=== PATIENT | male | born 1980 | race Caucasian/White ===

== ENCOUNTER 2017-05-07 20:38 | Emergency (ER) | payer MEDICAID ==
[2017-05-07] MEDS ORDERED: Sodium Chloride 0.9% 100 ML IV ONE (21:01)
[2017-05-07] MEDS ORDERED: Iopamidol 612 MG/ML 100 ML Bottle IV ONE (21:01)
[2017-05-07] MEDS ORDERED: Sodium Chloride 0.9% 10 ML Syringe FLUSH PRN (21:02)
[2017-05-07] MEDS ORDERED: Sodium Chloride 0.9% 1,000 ML IV ONE (21:03)
--- NOTE | 2017-05-07 21:04 | EDM.PDOC ---
ED HPI GENERAL MEDICAL PROBLEM - General Chief Complaint: Abdominal Pain Stated Complaint: Bloated and distended abdomen, jaundiced Time Seen by Provider: 05/07/17 20:40 Source of Information: Reports: Patient, Family, RN, RN Notes Reviewed History Limitations: Reports: No Limitations - History of Present Illness INITIAL COMMENTS - FREE TEXT/NARRATIVE: Patient presents the emergency room at [facility] complaining of abdominal bloating with abdominal discomfort. The patient states that he was seen at a walk-in clinic about 2-1/2 weeks ago for anxiety and insomnia. The patient states that he was prescribed an antidepressant, however he did not start the medication given a previous history. The patient states over the past couple of weeks his abdomen has progressively gotten worse with bloating. The patient states he's had a decrease in appetite. The patient states he's had loose stools. No diarrhea. The patient states that his abdominal bloating has progressively gotten worse. The patient states that he has also felt nauseated. The patient states that he has had dry heaves. The patient denies any trouble with urination. The patient states he feels short of breath at times. The patient is a current every day smoker. The patient denies any lower extremity edema. The patient states that she drinks alcohol on a daily basis. The patient states that he has 6-7 mixed drinks daily. The patient denies any medical history. The patient is currently not taking any prescription medications. Onset: Gradual Duration: Getting Worse Location: Reports: Abdomen Quality: Reports: Dull, Pressure Severity: Mild Improves with: Reports: None Worsens with: Reports: None Context: Denies: Activity, Exercise, Lifting, Sick Contact, Trauma Associated Symptoms: Reports: Loss of Appetite, Nausea/Vomiting, Shortness of Breath Treatments SOCIAL WORK COORDINATOR: Reports: Other (see below) (None) Abdomen Pain Score (Numeric/FACES): 5 - Related Data Allergies Allergy/AdvReac Type Severity Reaction Status Date / Time No Known Allergies Allergy Verified 05/07/17 20:55 Home Meds: Home Meds . [No Known Home Meds] 05/07/17 [History] ED ROS GENERAL - Review of Systems Review Of Systems: See Below Constitutional: Reports: Decreased Appetite. Denies: Fever, Chills Respiratory: Reports: Shortness of Breath. Denies: Cough, Sputum Cardiovascular: Denies: Chest Pain, Palpitations GI/Abdominal: Reports: Abdominal Pain, Distension, Nausea, Vomiting. Denies: Black Stool, Bloody Stool, Diarrhea Skin: Reports: No Symptoms Neurological: Reports: No Symptoms ED EXAM, GI/ABD - Physical Exam Exam: See Below Exam Limited By: No Limitations General Appearance: Alert, No Apparent Distress Respiratory/Chest: No Respiratory Distress, Lungs Clear, Normal Breath Sounds Cardiovascular: Normal Peripheral Pulses, Regular Rate, Rhythm, No Edema GI/Abdominal Exam: Distended, Rigid, Abnormal Bowel Sounds (Hyperactive), Hepatomegaly, Other (severe facial jaundice). No: Guarding Neurological: Alert, Oriented Skin Exam: Jaundice (facial) Course - Vital Signs Last Recorded V/S: Last Vital Signs Temp 36.3 C 05/07/17 20:52 Pulse 120 H 05/07/17 20:52 Resp 16 05/07/17 20:52 BP 145/87 H 05/07/17 20:52 Pulse Ox 94 L 05/07/17 20:52 - Orders/Labs/Meds Orders: Active Orders 24 hr Category Date Time Status Abdomen Pelvis w Cont [CT] Stat Exams 05/07/17 21:01 Taken FERRITIN [CHEM] Stat Lab 05/07/17 21:25 Received GGT [REF] Stat Lab 05/07/17 21:25 Received HEPATITIS PANEL, ACUTE [REF] Stat Lab 05/07/17 21:25 Received IRON/TIBC [CHEM] Stat Lab 05/07/17 21:25 Received RETICULOCYTE COUNT [REF] Stat Lab 05/07/17 21:25 Received Sodium Chloride 0.9% [Saline Flush] Med 05/07/17 21:02 Active 10 ml FLUSH ASDIRECTED PRN Peripheral IV Insertion Adult [OM.PC] Routine Oth 05/07/17 21:02 Ordered Medication Orders Sodium Chloride (Saline Flush) 10 ml FLUSH ASDIRECTED PRN PRN Reason: Keep Vein Open Labs: Laboratory Tests 05/07/17 05/07/17 05/07/17 Range/Units 21:25 21:25 21:25 WBC 9.6 (4.0-10.0) x10^3/uL RBC 3.62 L (4.5-6.0) x10^6/uL Hgb 13.2 L (14.0-18.0) g/dL Hct 34.2 L (40.0-52.0) % MCV 94.5 H (78.0-93.0) fL MCH 36.5 H (26.0-32.0) pg MCHC 38.6 H (32.0-36.0) g/dL RDW Coeff of [place] 15.9 H (10.0-15.0) % Plt Count 100 L (130-400) x10^3/uL Neut % (Auto) 86.8 H (50.0-80.0) % Lymph % (Auto) 4.1 L (25.0-50.0) % [place] % (Auto) 8.5 (2.0-11.0) % Eos % (Auto) 0.5 (0.0-4.0) % Baso % (Auto) 0.1 L (0.2-1.2) % ESR (0-16) mm/hr PT 23.6 H (9.8-11.8) SEC INR 2.2 (2.0-3.5) APTT 35.0 H (22.0-34.0) SEC Sodium 121 L* (136-145) mmol/L Potassium 3.1 L (3.5-5.1) mmol/L Chloride 83 L (98-107) mmol/L Carbon Dioxide 29 (21-32) mmol/L BUN 8 (7-18) mg/dL Creatinine 0.9 (0.70-1.30) mg/dL Est Cr Clr Drug Dosing TNP Estimated GFR (MDRD) > 60 Glucose 129 H (74-106) mg/dL Calcium 7.6 L (8.5-10.1) mg/dL Corrected Calcium 8.80 (8.5-10.1) mg/dL Total Bilirubin 33.2 H* (0.2-1.0) mg/dL Direct Bilirubin 26.50 H (0.00-0.20) mg/dL AST 268 H (15-37) U/L ALT 89 H (16-63) U/L Alkaline Phosphatase 363 H (46-116) U/L Lactate Dehydrogenase 554 H (85-227) U/L Total Protein 6.5 (6.4-8.2) g/dL Albumin 2.5 L (3.4-5.0) g/dL Globulin 4.0 Albumin/Globulin Ratio 0.63 Amylase 35 (25-115) U/L Lipase 365 (73-393) U/L Urine Color (YELLOW) Urine Appearance (CLEAR) Urine pH (5.0-8.0) Ur Specific [place] Urine Protein (NEGATIVE) mg/dL Urine Glucose (UA) (NEGATIVE) mg/dL Urine Ketones (NEGATIVE) mg/dL Urine Occult Blood (NEGATIVE) Urine Nitrite (NEGATIVE) Urine Bilirubin (NEGATIVE) Urine Urobilinogen (0.2) EU/dL Ur Leukocyte Esterase (NEGATIVE) Urine RBC (NOT SEEN) /HPF Urine WBC (NOT SEEN) /HPF Ur Squamous Epith Cells (NEGATIVE) /HPF Ur Transition Epith Cell (NEGATIVE) /HPF Ur Renal Epithelial Cell (NEGATIVE) /HPF Amorphous Sediment Urine Bacteria (NEGATIVE) /HPF Epithelial Casts Hyaline Casts (NEGATIVE) /HPF Granular Casts (NEGATIVE) /HPF WBC Casts (NEGATIVE) /HPF Urine Mucus (NEGATIVE) /LPF Ethyl Alcohol 108 H (0-3) mg/dL 05/07/17 05/07/17 Range/Units 21:25 21:27 WBC (4.0-10.0) x10^3/uL RBC (4.5-6.0) x10^6/uL Hgb (14.0-18.0) g/dL Hct (40.0-52.0) % MCV (78.0-93.0) fL MCH (26.0-32.0) pg MCHC (32.0-36.0) g/dL RDW Coeff of [place] (10.0-15.0) % Plt Count (130-400) x10^3/uL Neut % (Auto) (50.0-80.0) % Lymph % (Auto) (25.0-50.0) % [place] % (Auto) (2.0-11.0) % Eos % (Auto) (0.0-4.0) % Baso % (Auto) (0.2-1.2) % ESR 37 H (0-16) mm/hr PT (9.8-11.8) SEC INR (2.0-3.5) APTT (22.0-34.0) SEC Sodium (136-145) mmol/L Potassium (3.5-5.1) mmol/L Chloride (98-107) mmol/L Carbon Dioxide (21-32) mmol/L BUN (7-18) mg/dL Creatinine (0.70-1.30) mg/dL Est Cr Clr Drug Dosing Estimated GFR (MDRD) Glucose (74-106) mg/dL Calcium (8.5-10.1) mg/dL Corrected Calcium (8.5-10.1) mg/dL Total Bilirubin (0.2-1.0) mg/dL Direct Bilirubin (0.00-0.20) mg/dL AST (15-37) U/L ALT (16-63) U/L Alkaline Phosphatase (46-116) U/L Lactate Dehydrogenase (85-227) U/L Total Protein (6.4-8.2) g/dL Albumin (3.4-5.0) g/dL Globulin Albumin/Globulin Ratio Amylase (25-115) U/L Lipase (73-393) U/L Urine Color [place] H (YELLOW) Urine Appearance Turbid H (CLEAR) Urine pH 5.5 (5.0-8.0) Ur Specific [place] 1.025 Urine Protein 100 H (NEGATIVE) mg/dL Urine Glucose (UA) 100 H (NEGATIVE) mg/dL Urine Ketones 40 H (NEGATIVE) mg/dL Urine Occult Blood Trace-lysed H (NEGATIVE) Urine Nitrite Negative (NEGATIVE) Urine Bilirubin Large H (NEGATIVE) Urine Urobilinogen 1.0 (0.2) EU/dL Ur Leukocyte Esterase Large H (NEGATIVE) Urine RBC 0-5 (NOT SEEN) /HPF Urine WBC 10-20 H (NOT SEEN) /HPF Ur Squamous Epith Cells Occasional H (NEGATIVE) /HPF Ur Transition Epith Cell Moderate H (NEGATIVE) /HPF Ur Renal Epithelial Cell Occasional H (NEGATIVE) /HPF Amorphous Sediment Moderate Urine Bacteria Few H (NEGATIVE) /HPF Epithelial Casts Moderate Hyaline Casts Few H (NEGATIVE) /HPF Granular Casts Moderate H (NEGATIVE) /HPF WBC Casts Few H (NEGATIVE) /HPF Urine Mucus Moderate H (NEGATIVE) /LPF Ethyl Alcohol (0-3) mg/dL Meds: Medications Generic Name Dose Route Start Last Admin Trade Name Freq PRN Reason Stop Dose Admin Sodium Chloride 10 ml 05/07/17 21:02 Saline Flush FLUSH ASDIRECTED PRN Keep Vein Open Discontinued Medications Generic Name Dose Route Start Last Admin Trade Name Freq PRN Reason Stop Dose Admin Sodium Chloride 1,000 mls @ 999 mls/hr 05/07/17 21:03 05/07/17 21:30 Normal Saline IV 05/07/17 22:03 999 mls/hr ONETIME ONE Administration Departure - Departure Time of Disposition: 23:03 Disposition: DC/Tfer to Acute Hospital 02 Condition: Fair Clinical Impression: Jaundice of recent onset, Acute hyponatremia, Dehydration, Alcoholism Liver cirrhosis Qualifiers: Hepatic cirrhosis type: unspecified hepatic cirrhosis Ascites presence: without ascites Qualified Code(s): K74.60 - Unspecified cirrhosis of liver - Discharge Information Forms: Interfacility Transfer [facility] ED Communication - ED Communication Date/Time Date: 05/07/17 Time Called: 23:02 - Discussed Case With (1) Discussed Case With (1): Admitting Provider (Dr. Wright, Hospitalist) - Conversation Summary Admitting Provider Agreed to Patient's Admission: Yes Patient Aware of Amendments fo Care Plan: Yes Summary Comment: Patient will be transferred to [facility]. Accepting provider Dr. Wright. Report given. Patient will travel via [facility] ground. - Problem List Review Problem List Initiated/Reviewed/Updated: Yes - My Orders Last 24 Hours: My Active Orders 05/07/17 21:01 Abdomen Pelvis w Cont [CT] Stat 05/07/17 21:02 Sodium Chloride 0.9% [Saline Flush] 10 ml FLUSH ASDIRECTED PRN Peripheral IV Insertion Adult [OM.PC] Routine 05/07/17 21:25 FERRITIN [CHEM] Stat GGT [REF] Stat HEPATITIS PANEL, ACUTE [REF] Stat IRON/TIBC [CHEM] Stat RETICULOCYTE COUNT [REF] Stat - Assessment/Plan Last 24 Hours: My Active Orders 05/07/17 21:01 Abdomen Pelvis w Cont [CT] Stat 05/07/17 21:02 Sodium Chloride 0.9% [Saline Flush] 10 ml FLUSH ASDIRECTED PRN Peripheral IV Insertion Adult [OM.PC] Routine 05/07/17 21:25 FERRITIN [CHEM] Stat GGT [REF] Stat HEPATITIS PANEL, ACUTE [REF] Stat IRON/TIBC [CHEM] Stat RETICULOCYTE COUNT [REF] Stat
[2017-05-07 22:12] LABS: CHLORIDE,CL 83 mmol/L (98-107)
[2017-05-07 22:15] LABS: SODIUM,NA 121 mmol/L (136-145)
[2017-05-07] MEDS ORDERED: Sodium Chloride 0.9% 1,000 ML IV SCH (23:15)
[2017-05-07] MEDS ORDERED: Ondansetron 4 MG/2 ML SDV IVPUSH ONE (23:20)
[2017-05-07] MEDS ORDERED: Morphine 2 MG/ML Syringe IVPUSH ONE (23:20)
[2017-05-09] MEDS ORDERED: Iopamidol 612 MG/ML 100 ML Bottle IVPUSH ONE (08:38)
[2017-05-09] MEDS ORDERED: Sodium Chloride 0.9% 100 ML IV SCH (08:45)
== END 2017-05-08 00:20 | disposition short-term general hospital (02) ==
LOC: VM.ED 20:38
DX: K74.60 Unspecified cirrhosis of liver (principal); E86.0 Dehydration; R17 Unspecified jaundice; F10.20 Alcohol dependence, uncomplicated
CPT/HCPCS: 36415; 74177; 80053; 80074; 81001; 82150; 82248; 82728; 82977; 83540; 83550; 83615; 83690; 85025; 85045; 85610; 85652; 85730; 96361; 96374; 96375; 99285; G0480; J2270; J2405; J7030; J7050; Q9967

== ENCOUNTER 2021-12-23 11:08 | Day surgery (SDC) | payer MEDICAID ==
[~2021-12-23 11:08] MED LIST: Lactated Ringers 1,000 ML IV SCH
[2021-12-23] MEDS ORDERED: Propofol 200 MG/20 ML SDV ONE (11:46)
[2021-12-23] MEDS ORDERED: fentaNYL 100 MCG/2 ML SDV ONE (11:46)
== END 2021-12-23 14:25 | disposition home or self-care (01) ==
LOC: VM.SDS 11:08
PROVIDERS: ATTEND Family Medicine
DX: D12.4 Benign neoplasm of descending colon (principal); K64.4 Residual hemorrhoidal skin tags; G47.00 Insomnia, unspecified; F41.9 Anxiety disorder, unspecified; Z79.899 Other long term (current) drug therapy; Z98.890 Other specified postprocedural states; Z87.891 Personal history of nicotine dependence
CPT/HCPCS: 00811; J2704; J3010; J7120